=== PATIENT | male | born 1955 | race Caucasian/White ===

== ENCOUNTER 2017-03-04 10:27 | Day surgery (SDC) | payer OTHER ==
[2017-03-01 08:14] VITALS: BMI 26.6
--- NOTE | 2017-03-04 12:37 | CP.SDSHP ---
Same Day Surgery H & P - History Proposed Procedure: Left neck mass biopsy Pre-Op Diagnosis: Left neck mass - Allergies Allergies: Allergies No Known Allergies Allergy (Verified 09/01/14 11:41) - Physical Exam Vital Signs: Vital Signs 03/04/17 10:45 Temperature 97.3 F L Pulse Rate 67 Respiratory 20 Rate Blood Pressure 143/78 O2 Sat by Pulse 97 Oximetry - Date & Time Date: 03/04/17 Time: 12:20 Short Stay Discharge - Short Stay Discharge Admitting Diagnosis/Reason for Visit: PAROTID MASS Disposition: HOME/ ROUTINE
--- NOTE | 2017-03-04 12:38 | PCM.SURG1 ---
Surgeon's Initial Post Op Note - Surgeon's Notes Surgeon: Katalina Custom Designer: None Type of Anesthesia: Local Pre-Operative Diagnosis: Left neck mass. Operative Findings: Left neck mass. Post-Operative Diagnosis: Left neck mass. Operation Performed: Left neck mass core biopsy. Specimen/Specimens Removed: Left neck mass 20G core biopsy x 3 Estimated Blood Loss: EBL {In ML}: 1 Date of Surgery/Procedure: 03/04/17 Time of Surgery/Procedure: 12:30
[2017-03-04 13:00] VITALS: BP 130/60; PULSE 83; RESP 18; TEMP 97; O2SAT 96
--- NOTE | 2017-03-05 11:30 | US ---
Left neck/parotid mass biopsy History: Left neck swelling. Comparison: Comparison is made to CT of the neck done recently at [facility]. Anesthesia: Local lidocaine. Procedure and findings: The patient was positioned supine on the examination table. Informed consent was obtained prior to the procedure after discussing relative risks and benefits of the procedure. The left neck region was prepped and draped in the usual sterile techniques. Initial ultrasound evaluation of the left neck demonstrated a hypoechoic mass which approximately measures 2.8 x 1 x 1.8 centimeters. This corresponds to the previously seen mass in the CT. 1% lidocaine was used to anesthetize the skin and the underlying soft tissue leading up to the mass. In 18 gauge coaxial needle was introduced into the mass. The inner stylet was then removed. A 20 gauge core biopsy needle was introduced and multiple biopsy samples were obtained. The biopsy system was then removed. The biopsy samples were then sent for pathologic analysis. Postprocedure ultrasonography evaluation demonstrated no evidence of hematoma. The patient tolerated the procedure well without any adverse events. Impression: Successful ultrasound-guided biopsy of left neck mass.
== END 2017-03-04 13:16 | disposition home or self-care (01) ==
LOC: C.SPRAD 10:27
PROVIDERS: ATTEND Radiology Vascular & Interventional Radiology
DX: D11.9 Benign neoplasm of major salivary gland, unspecified (principal)